=== PATIENT | male | born 1995 | race Caucasian/White ===

== ENCOUNTER 2020-07-26 18:31 | Emergency (ER) | payer BC ==
[~2020-07-26] VITALS: Ht 172.7 cm; Wt 103.4 kg
[~2020-07-26 18:31] MED LIST: IBUPROFEN 600600 M1 PO
[2020-07-26 21:31] VITALS: BP 143/81
== END 2020-07-26 21:32 | disposition home or self-care (01) ==
LOC: M.ERS 18:31
DX: S61.211A Laceration without foreign body of left index finger without damage to nail, initial encounter (principal); S61.213A Laceration without foreign body of left middle finger without damage to nail, initial encounter; W26.0XXA Contact with knife, initial encounter; Y93.89 Activity, other specified; Y92.89 Other specified places as the place of occurrence of the external cause; Y99.8 Other external cause status